=== PATIENT | female | born 1950 | race Caucasian/White ===

== ENCOUNTER → 2021-03-09 08:00 | Outpatient (BNVA) | payer MEDICARE, SELFPAY | PROVIDERS: Visit Provider Orthopaedic Surgery | DX: M70.50 Other bursitis of knee, unspecified knee (principal) | CPT/HCPCS: 99202 ==

== ENCOUNTER 2021-04-20 13:07 | Outpatient (REF) | payer MEDICARE, SELFPAY ==
--- NOTE | ~2021-04-20 | XR_ITS ---
EXAMINATION: XR KNEE STANDING, BILATERAL XR KNEE, LEFT CLINICAL INFORMATION: Knee pain. COMPARISON: None TECHNIQUE: AP standing view of the right and left knee. Lateral and sunrise views of the left knee. FINDINGS: No significant joint space narrowing or marginal osteophytes. No osseous erosion. No abnormal soft tissue calcification. No fracture or dislocation. No significant joint effusion. XR/XR knee LT 2V IMPRESSION: Unremarkable examination.
--- NOTE | ~2021-04-20 | XR_ITS ---
EXAMINATION: XR KNEE STANDING, BILATERAL XR KNEE, LEFT CLINICAL INFORMATION: Knee pain. COMPARISON: None TECHNIQUE: AP standing view of the right and left knee. Lateral and sunrise views of the left knee. FINDINGS: No significant joint space narrowing or marginal osteophytes. No osseous erosion. No abnormal soft tissue calcification. No fracture or dislocation. No significant joint effusion. XR/XR knee standing BI IMPRESSION: Unremarkable examination.
== END 2021-04-20 13:08 | disposition home or self-care (01) ==
LOC: HO.HOSX 13:07
PROVIDERS: PCP Internal Medicine; Visit Provider Orthopaedic Surgery
DX: M70.50 Other bursitis of knee, unspecified knee (principal)
CPT/HCPCS: 73560; 73565; 99212

== ENCOUNTER 2022-11-22 11:47 | Outpatient (REF) | payer MEDICARE, SELFPAY ==
--- NOTE | ~2022-11-22 | XR_ITS ---
EXAMINATION: XR SHOULDER, LEFT CLINICAL INFORMATION: Pain. COMPARISON: None TECHNIQUE: AP neutral, scapular Y and axillary views of the left shoulder are submitted. FINDINGS: Bony alignment and mineralization are normal. The glenohumeral joint is intact. There is a small peripheral osteophyte of the inferior articular margin of the glenoid. The acromioclavicular and coracoclavicular intervals are normal. No fracture or dislocation is seen. There is no abnormal soft tissue calcification or foreign body. No left pneumothorax is seen. XR/XR shoulder LT min 2V IMPRESSION: 1. No fracture or dislocation is seen. 2. 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
== END 2022-11-22 11:48 | disposition home or self-care (01) ==
LOC: HO.HOSX 11:47
PROVIDERS: Visit Provider Orthopaedic Surgery
DX: M25.512 Pain in left shoulder (principal)
CPT/HCPCS: 73030; 99212

== ENCOUNTER → 2023-01-17 09:40 | Outpatient (BNVA) | payer MEDICARE, SELFPAY | PROVIDERS: PCP Student in an Organized Health Care Education/Training Program; Visit Provider Orthopaedic Surgery | DX: M53.3 Sacrococcygeal disorders, not elsewhere classified (principal); M24.812 Other specific joint derangements of left shoulder, not elsewhere classified; G89.29 Other chronic pain | CPT/HCPCS: 99212 ==

== ENCOUNTER → 2023-02-04 08:42 | Outpatient (BNVA) | payer MEDICARE, SELFPAY | PROVIDERS: PCP Student in an Organized Health Care Education/Training Program; Visit Provider Orthopaedic Surgery | DX: S46.212A Strain of muscle, fascia and tendon of other parts of biceps, left arm, initial encounter (principal); W00.0XXA Fall on same level due to ice and snow, initial encounter; Y93.23 Activity, snow (alpine) (downhill) skiing, snowboarding, sledding, tobogganing and snow tubing; Y92.9 Unspecified place or not applicable; Y99.8 Other external cause status; M75.102 Unspecified rotator cuff tear or rupture of left shoulder, not specified as traumatic; M53.3 Sacrococcygeal disorders, not elsewhere classified; G89.29 Other chronic pain | CPT/HCPCS: 99212 ==

== ENCOUNTER → 2023-03-25 09:10 | Outpatient (BNVA) | payer MEDICARE, SELFPAY | PROVIDERS: PCP Student in an Organized Health Care Education/Training Program; Visit Provider Orthopaedic Surgery | DX: M75.102 Unspecified rotator cuff tear or rupture of left shoulder, not specified as traumatic (principal); S46.212D Strain of muscle, fascia and tendon of other parts of biceps, left arm, subsequent encounter | CPT/HCPCS: 20610; 99212; J1100 ==

== ENCOUNTER 2023-11-04 07:12 | Outpatient (REF) | payer MEDICARE, SELFPAY ==
--- NOTE | ~2023-11-04 | XR_ITS ---
EXAMINATION: XR KNEE AP STANDING, RIGHT KNEE [place] CLINICAL INFORMATION: Pain in unspecified knee. COMPARISON: 10/30/2023 right knee. 08/31/2021 AP standing bilateral knees. TECHNIQUE: AP bilateral standing view of the knees was obtained. [place] view of the right knee. FINDINGS: Mild medial joint space narrowing of the right knee with minimal medial marginal hypertrophic change. Tiny posterior patellar osteophytes. Single AP standing view of the left knee demonstrates minimal medial joint space narrowing. Scattered calcifications in the soft tissues of the bilateral knees are likely vascular. XR/XR knee standing BI IMPRESSION: 1. Mild degenerative changes right knee. 2. Minimal degenerative changes left knee.
--- NOTE | ~2023-11-04 | XR_ITS ---
EXAMINATION: XR KNEE AP STANDING, RIGHT KNEE [place] CLINICAL INFORMATION: Pain in unspecified knee. COMPARISON: 10/30/2023 right knee. 08/31/2021 AP standing bilateral knees. TECHNIQUE: AP bilateral standing view of the knees was obtained. [place] view of the right knee. FINDINGS: Mild medial joint space narrowing of the right knee with minimal medial marginal hypertrophic change. Tiny posterior patellar osteophytes. Single AP standing view of the left knee demonstrates minimal medial joint space narrowing. Scattered calcifications in the soft tissues of the bilateral knees are likely vascular. XR/XR knee RT 1V IMPRESSION: 1. Mild degenerative changes right knee. 2. Minimal degenerative changes left knee.
== END 2023-11-04 07:13 | disposition home or self-care (01) ==
LOC: HO.HOSX 07:12
PROVIDERS: Visit Provider Orthopaedic Surgery
DX: M25.561 Pain in right knee (principal); M23.91 Unspecified internal derangement of right knee
CPT/HCPCS: 73560; 73565; 99212

== ENCOUNTER 2023-11-04 12:21 | Outpatient (AMB) | payer MEDICARE, SELFPAY ==
[2023-11-04 12:41] VITALS: BMI 18.6
--- NOTE | 2023-11-04 12:41 | MHC.OFFVIS ---
Intake Vital Signs 11/04/23 12:41 Height 5 ft 1.5 in Weight 100 lb BMI 18.6 Intake Visit Reasons: New Prob -right knee pain/injury Intake Note: Hawa is a 72 year old female who presents today for a new problem visit with complaints of right knee pain. Patient reports that she was skiing on saturday afternoon and she hit ice. She is unsure exactly how she fell, she twisted the knee. Currently the knee is feeling better but she explains that something feels wrong Allergies ENVIRONMENTAL Allergy (Intermediate, Uncoded 01/17/23 09:43) HAYFEVER HPI New Prob -right knee pain/injury HPI Details Hawa is a 72 year old woman who presents for a right knee injury while skiing, DOI: 10/30/23. She says she was skiing and slipped on ice, twisting her knee and causing pain. She says her pain has improved somewhat, but that something feels wrong with her knee. [facility] Surgical History History of shoulder surgery Social History Alcohol intake: never Patient Tobacco Use Status: Never used Tobacco Current occupational status: retired Current occupation: right handed Review of Systems Const All systems reviewed & are unremarkable except as noted in HPI and below Physical Exam Vital Signs: BMI result Body Mass Index 18.6 Const General: no acute distress, alert and awake Orientation/consciousness: patient oriented x3 HEENT Head: Yes normocephalic and Yes atraumatic Eyes EOM: EOMs intact bilaterally Resp Effort & Inspection: normal respiratory effort and able to speak in complete sentences Cardio Jugular venous distension: no JVD Skin General skin exam: turgor normal Rashes: no rashes Neuro General: patient oriented x3 Extrem Other: No effusion Pain with terminal flexion + Steinmen's Psych Appearance: grossly normal Affect: normal affect Attitude: cooperative Results Reviewed Results Reviewed: I personally reviewed relevant radiographs. Xray unremarkable Assessment & Plan Assessment & Plan (1) Locking of right knee: Code(s): M23.91 - Unspecified internal derangement of right knee Plan: Internal derangment of right knee with pain and locking. MRI ordered. Plan Prepared for Dao Hernandez MD by Guille Hu, medical anthropology director, on 11/04/23 at 12:47 PM, EST. Orders: Orders MR knee RT wo con Today M23.91 - Unspecified internal derangement of right knee XR knee standing BI Today M25.569 - Pain in unspecified knee Coding Level of Care Code Est Pt Level 4 (25276) Diagnoses Locking of right knee M23.91
== END 2023-11-04 13:40 | disposition home or self-care (01) ==
PROVIDERS: PCP Student in an Organized Health Care Education/Training Program; Visit Provider Orthopaedic Surgery
DX: M23.91 Unspecified internal derangement of right knee (principal)
CPT/HCPCS: 99213

== ENCOUNTER 2023-11-06 12:40 | Outpatient (REF) | payer MEDICARE, SELFPAY ==
--- NOTE | ~2023-11-06 | MR_ITS ---
EXAMINATION: MR KNEE WITHOUT CONTRAST, RIGHT CLINICAL INFORMATION: Fall 1 week ago. COMPARISON: None available. TECHNIQUE: MRI of the knee without contrast was performed using routine sequences on a high-field scanner. FINDINGS: MENISCI: Medial Meniscus: Intact Lateral Meniscus: Irregular tearing of the posterior root/central posterior horn. This involves a segment approximately 1.4 cm transverse. LIGAMENTS: Cruciate: Increased T2 signal in its/proximal ACL, raising concern for sprain/partial tear. Mild T2 signal in the PCL, could reflect mucoid degeneration or sprain. Collateral: Intact EXTENSOR MECHANISM: Intact ARTICULAR CARTILAGE/BONE: Patellofemoral Compartment: Mild medial trochlea cartilage thinning. In the Medial Compartment: Mild cartilage thinning in the posterior tibia, anterior weightbearing femur. Lateral Compartment: Prominent edema in the posterior aspect lateral tibial plateau, from bone contusion, with a subchondral curvilinear undisplaced fracture/trabecular microfracture. Cartilage thinning in the posterior tibia. JOINT FLUID AND BURSAE: Small effusion. Small Lezama's cyst. Subcutaneous edema. MR/MR knee RT wo con IMPRESSION: 1. Tear of the lateral meniscal posterior root and central posterior horn. 2. ACL findings concerning for sprain/partial tear. 3. Mild patellofemoral and medial compartment arthritis. 4. Severe edema in the posterior aspect lateral tibial plateau from bone contusion and a subchondral curvilinear undisplaced fracture/trabecular microfracture. Mild lateral compartment arthritis. 4. Small effusion. Small Lezama's cyst.
== END 2023-11-06 12:41 | disposition home or self-care (01) ==
LOC: HO.MRI 12:40
PROVIDERS: PCP Student in an Organized Health Care Education/Training Program; Visit Provider Orthopaedic Surgery
DX: M23.91 Unspecified internal derangement of right knee (principal); M25.461 Effusion, right knee
CPT/HCPCS: 73721

== ENCOUNTER 2023-11-06 14:21 | Outpatient (AMB) | payer MEDICARE, SELFPAY ==
--- OUTSIDE RECORDS SUMMARY | 2023-11-06 14:23 | XMS_ITS | Continuity of Care Document ---
Author Name Unknown Organization [facility] Address [address] [place] [address]- Care Team Providers Care Technology Support Analyst Name Role Phone Sarah HARDING, Brea Mccrary Primary Care Physic rakesh [place] [facility] [place] 02/11/21 [facility] [address] [address]- Attending Physician: Carol Ann Mix Admitting Physician: AdmtrCarol Ann Referring Physician: Admtr, Ar8 Allergies, Adverse Reactions, Alerts Substance Reaction Severity Status NKA Active Medications 1 tug chair 1 tug chair, See Instructions, # 1 units, Refills 0, Tot. Refills 0, Maintenance, tug chair, 02/11/19 10:22:58 EDT, Compound Start Date: 02/11/19 Status: Ordered Annamarie = 180 mg, By Mouth, Daily, 0 Refills, Maintenance, 01/23/19 15:20:25 EDT Start Date: 01/23/19 Status: Ordered bed rails bed rails, See Instructions, # 1 units, Refills 0, Tot. Refills 0, Maintenance, bed rails, 02/11/1910:21:26 EDT, Compound Start Date: 02/11/19 Status: Ordered calcium (as carbonate) 500 mg oral tablet, chewable 1 tablet = 500 mg, Chew, Daily, # 12 tablet, 0 Refills, Maintenance, 11/14/19 16:46:00 EST, Chew Tablet Start Date: 11/14/19 Status: Ordered Colace sodium 100 mg oral capsule 100 mg, 1, capsule, By Mouth, 2 times a day, PRN, Maintenance, for constipation, 11/15/19 14:29:00 EST Start Date: 11/15/19 Status: Ordered Estrace Vaginal Cream 0.1 mg/g Vaginally, Daily at bedtime, 2x a week on Saturday and Saturday, 0 Refills, Maintenance, 01/28/19 10:34:44 EDT Start Date: 01/28/19 Status: Ordered Estradiol = 0.25 mg, By Mouth, Daily at bedtime, 0 Refills, Maintenance, 03/30/17 16:14:08 EDT Start Date: 03/30/17 Status: Ordered Fish Oil 1000 mg oral capsule 1 capsule = 1,000 mg, By Mouth, Daily, 0 Refills, Maintenance, 01/23/19 15:43:06 EDT Start Date: 01/23/19 Status: Ordered gabapentin 100 mg oral capsule 200 mg, 2, capsule, By Mouth, Daily at bedtime, Refills 0, Maintenance, 11/14/19 16:46:00 EST Start Date: 11/14/19 Status: Ordered melatonin 10 mg oral capsule 1 capsule = 10 mg, By Mouth, Daily at bedtime, 0 Refills, Maintenance, 12/19/17 10:10:45 Start Date: 12/19/17 Status: Ordered Multivitamin Daily, 0 Refills, Maintenance, 12/19/17 10:10:52 Start Date: 12/19/17 Status: Ordered ProAir HFA 90 mcg/inh inhalation aerosol with adapter 2, puffs, Inhalation, Every 6 hours, PRN, Maintenance, 11/15/19 14:28:00 EST, Aerosol Start Date: 11/15/19 Status: Ordered Iridologist Iridologist, See Instructions, # 1 units, Refills 0, Tot. Refills 0, Maintenance, Iridologist, 02/11/19 10:20:33 EDT, Compound Start Date: 02/11/19 Status: Ordered Senna Lax 8.6 mg oral tablet 2 tablet = 17.2 mg, By Mouth, Daily at bedtime, PRN for constipation, Maintenance, 11/15/19 14:29:00 EST, Tablet Start Date: 11/15/19 Status: Ordered Vitamin D3 1000 intl units oral tablet 1 tablet = 1,000 International_Units, By Mouth, Daily, Maintenance, 11/15/19 14:29:00 EST, Tablet Start Date: 11/15/19 Status: Ordered Walker See Instructions, # 1 each, Refills 0, Tot. Refills 0, Maintenance, walker fit to patient, use as needed. patient is post op, 05/15/19 11:56:01 EDT, Compound Start Date: 05/15/19 Status: Ordered Problem List Condition Effective Dates Status Health Status Inform ant Allergic rhinitis(Confirmed) Active Anxiety(Confirmed) Active Low back pain(Confirmed) Active Persistent insomnia(Confirmed) Active Social History Social History Type Response Smoking Status Never (less than 100 in lifetime) entered on: 06/04/19 Sex Female
--- OUTSIDE RECORDS SUMMARY | 2023-11-06 14:23 | XMS_ITS | Continuity of Care Document ---
Author Name Unknown Organization [facility] Address [address] [place] [address] [address], [address] [place] [address]- Care Team Providers Care Cognos Developer Name Role Phone Sarah HARDING, Brea Mccrary Primary Care Physic rakesh Encounter [facility] [place] Date(s): 07/08/20 - 08/07/20 [facility] [address] [place] [address] Drive, [address] [place] [address]- [facility] Allergies, Adverse Reactions, Alerts Substance Reaction Severity [...] EST, Aerosol Start Date: 11/15/19 Status: Ordered Technologies Division Chair Technologies Division Chair, See Instructions, # 1 units, Refills 0, Tot. Refills 0, Maintenance, Technologies Division Chair, 02/11/19 10:20:33 EDT, Compound Start Date: 02/11/19 [...]
--- OUTSIDE RECORDS SUMMARY | 2023-11-06 14:23 | XMS_ITS | Continuity of Care Document ---
Author Name Unknown Organization [facility] Address [address] [place] [address]- Care Team Providers Care Ranch Hand Name Role Phone Sarah HARDING, Brea Mccrary Primary Care Physic rakesh En[place] [facility] [place] Date(s): 11/14/19 - 11/16/[address] [address]- [facility] Discharge Disposition: A-D/C Home Attending Physician: Galindo HARDING, Claude Christianson Admitting Physician: Claude Medley MD Referring Physician: Not on Staff, Referring MD Allergies, Adverse Reactions, Alerts Substance Reaction Severity [...] EST, Aerosol Start Date: 11/15/19 Status: Ordered Casino Floor Person Casino Floor Person, See Instructions, # 1 units, Refills 0, Tot. Refills 0, Maintenance, Casino Floor Person, 02/11/19 10:20:33 EDT, Compound Start Date: 02/11/19 [...] Low back pain(Confirmed) Active Persistent insomnia(Confirmed) Active Results Radiology Reports * Exam Date Time Procedure Performing Provider Status 11/14/19 1:26 PM Chest 2 Views Frontal and Lat Yudelka Ramírez; Auth (Verified) Notes: (Chest 2 Views Frontal and Lat) Reason For Exam: cough;Other: RESULT: Chest 2 Views Frontal and Lat Chest 2 Views Frontal and Lat Refer to EMR; Reason: Other:; cough; Clinical Question(s): Pneumonia; Hx of Present Illness: t approx 2 am patient reports she got up to go to the bathroom, felt nauseated, woke up on the floor, was found by spouse. Was confused and not following commands. Flu like symptoms since Saturday, started Tamiflu Saturday; Other Objective Findings: Patient awake, alert, approp, oriented x 3, speech clear, COMPARISON: 10/17/2019 FINDINGS: LINES AND TUBES: None. LUNGS AND PLEURA: Right upper and right middle lobe airspace opacities are slightly decreased in size compared with 10/17/2019. New airspace opacity is seen within the right lower lobe. Left lung is clear. No pleural effusion. No pneumothorax. HEART, MEDIASTINUM AND RICARDO: Heart is normal in size. Normal mediastinal and hilar contour. BONES AND SOFT TISSUES: No acute abnormality. IMPRESSION: Right upper lobe and right middle lobe airspace opacities are slightly decreased from prior study. There is however new airspace opacity in the right lower lobe. This may represent acute pneumonia oratelectasis. As recommended previously, follow-up to complete radiographic resolution of these findings is recommended. A [place] message has been communicated via the [facility] system on 11/14/2019 2:06 PM, Message ID [id number]. WSN: [id number] Dictated By: Janessa Gallegos MD Dictated Date/Time: 11/14/19 2:06 pm Reviewed By: Janessa Gallegos MD Signed By: Janessa Gallegos MD Signed Date/Time: 11/14/19 2:06 pm Transcribed By: JUNO Transcribed Date/Time: 11/14/19 2:02 pm Vital Signs Most recent to oldest [Reference Range]: 1 2 3 Height 158 cm (11/16/19 9:03 AM) 158 cm (11/16/19 5:56 AM) 158 cm (11/16/19 12:13 AM) Weight 46.1 kg (11/16/19 5:56 AM) 46.2 kg (11/15/19 2:23 PM) 47.8 kg (11/15/19 1:08 PM) Oxygen Saturation [94-100 %] 98 % (11/16/19 5:56 AM) 99 % (11/16/19 12:13 AM) 100 % (11/15/19 4:45 PM) Pulse Rate [55-90 bpm] 65 bpm (11/16/19 5:56 AM) 68 bpm (11/16/19 12:13 AM) 73 bpm (11/15/19 4:45 PM) Body Mass Index [18.5-24.99] 18.47 *L* (11/16/19 5:56 AM) 18.51 (11/15/19 2:23 PM) Blood Pressure [90-138/55-84 mm Hg] 140/70mm Hg *H* (11/16/19 9:03 AM) 145/72mm Hg *H* (11/16/19 5:56 AM) 146/68mm Hg *H* (11/16/19 12:13 AM) Respiratory Rate [16-30 br/min] 16 br/min (11/16/19 5:56 AM) 16 br/min (11/16/19 12:13 AM) 18 br/min (11/15/19 9:48 PM) Temperature [96.8-100.4 DegF] 98.0 DegF (11/16/19 5:56 AM) 98.3 DegF (11/16/19 12:13 AM) 98.1 DegF (11/15/19 4:45 PM) Mode of Delivery (Oxygen) Room air (11/16/19 5:56 AM) Room air (11/16/19 12:13 AM) Room air (11/15/19 4:45 PM) Blood pressure sites Arm, left (11/16/19 9:03 AM) Arm, left (11/16/19 5:56 AM) Arm, left (11/16/19 12:13 AM) Temperature Route Oral (11/16/19 5:56 AM) Oral (11/16/19 12:13 AM) Oral (11/15/19 4:45 PM) Dry Weight 48 kg (11/15/19 2:23 PM) 47.8 kg (11/15/19 1:08 PM) 47.8 kg (11/15/19 12:49 PM) Weight Obtained Via Bed scale (11/16/19 5:56 AM) Bed scale (11/15/19 2:23 PM) Standing scale (11/14/19 11:44 AM) Dry Weight Obtained Via Patient/family s tated (11/15/19 2:23 PM) Standing scale (11/14/19 11:44 AM) Sensory deficits None (11/15/19 2:23 PM) Mobility assistance Independent (11/15/19 2:23 PM) Social History Social History Type Response Smoking Status Never (less than 100 in lifetime) entered on: 06/04/19 Sex Female
--- OUTSIDE RECORDS SUMMARY | 2023-11-06 14:23 | XMS_ITS | Continuity of Care Document ---
Author Name Unknown Organization [facility] Address [address] [place], [place] [address]soledad denise, [address] [place] [address]- Care Team Providers Care Mortgage Processing Clerk Name Role Phone Brea Smith MD Primary Care Physic rakesh Encounter [facility] [place] Date(s): 10/30/22 - 11/06/[address], [address] [place], [place] [address] Attending Physician: Brea Smith MD Allergies, Adverse Reactions, Alerts No Known Allergies Medications 1 tug chair 1 tug chair, [...] EST, Aerosol Start Date: 11/15/19 Status: Ordered Campus Recruiter Campus Recruiter, See Instructions, # 1 units, Refills 0, Tot. Refills 0, Maintenance, Campus Recruiter, 02/11/19 10:20:33 EDT, Compound Start Date: 02/11/19 [...] Date: 05/15/19 Status: Ordered Problem List Condition Confirmation Course Effective Dates Status Health St atus Informant Allergic rhinitis Confirmed Active Anxiety Confirmed Active Low back pain Confirmed Active Persistent insomnia Confirmed Active Underweight Confirmed Active Vital Signs Most recent to oldest [Reference Range]: 1 Height 160 cm (10/30/22 8:50 AM) Weight 46.0 kg (10/30/22 8:50 AM) Body Mass Index [18.5-24.99 kg/m2] 17.97 kg/m2 *L* (10/30/22 8:50 AM) Social History Social History Type Response Smoking Status Never (less than 100 in lifetime) entered on: 06/04/19 Sex Female Patient Care team information Care Team Personnel Name: Zunilda Ahumada RN Position: [facility] RN Member Role: Primary Care Nurse Name: Sarah HARDING, Brea Mccrary Position: [facility] Outreach Member Role: PCP Address: Address: [address] [place] [address], [place], [place] [address] Name: Daisy Brooks RN Position: [facility] Hospital Ironworker Apprentice Member Role: Primary Care Nurse Care Team Related Persons Name: MIC RUEDA Address: [address] [place] [address] Name: BERTHA BUSTOS Address: [address] [place] [address]
--- OUTSIDE RECORDS SUMMARY | 2023-11-06 14:23 | XMS_ITS | Continuity of Care Document ---
Author Name Unknown Organization [facility] Address [address] [place], [place] [address] denise, [address] [place] [address]- Care Team Providers Care Bulk Coolers Installer Name Role Phone Sarah HARDING, Brea Mccrary Primary Care Physic rakesh [place] [facility] [place]s): 10/30/22 - 11/29/22 [facility] [address] [place] [address] Drive, [address] [place], [place] [address] Attending Physician: Admtr, Ar8 Admitting Physician: Admtr, Ar8 Referring Physician: Admtr, Ar8 Allergies, Adverse Reactions, Alerts No Known Allergies [...] EST, Aerosol Start Date: 11/15/19 Status: Ordered Video Game Animator Video Game Animator, See Instructions, # 1 units, Refills 0, Tot. Refills 0, Maintenance, Video Game Animator, 02/11/19 10:20:33 EDT, Compound Start Date: 02/11/19 [...] Persistent insomnia Confirmed Active Underweight Confirmed Active Social History Social History Type Response Smoking Status Never (less than 100 in lifetime) entered on: 06/04/19 Sex Female Patient Care team information Care Team Personnel Name: Zunilda Ahumada RN Position: [facility] RN Member Role: Primary Care Nurse Name: Brea Smith MD Position: [facility] Outreach Member Role: PCP Address: Address: [address] [place] [address], [place], [place] [address] Name: Daisy Brooks RN Position: [facility] Hospital Gis Analyst Member Role: Primary Care Nurse Care Team Related Persons Name: MIC RUEDA Address: [address] [place] [address] Name: BERTHA BUSTOS Address: [address] [place] [address]
--- OUTSIDE RECORDS SUMMARY | 2023-11-06 14:23 | XMS_ITS | Continuity of Care Document ---
Author Name Unknown Organization [facility] Address [address] [place] [address]- Care Team Providers Care Maintenance Advisor Name Role Phone Sarah HARDING, Brea Mccrary Primary Care Physic rakesh Encounter [facility] [place] Date(s): 05/24/21 - 06/23/21 [facility] [address] [place] [address] Allergies, Adverse Reactions, Alerts Substance Reaction Severity [...] EST, Aerosol Start Date: 11/15/19 Status: Ordered Validation Engineer Validation Engineer, See Instructions, # 1 units, Refills 0, Tot. Refills 0, Maintenance, Validation Engineer, 02/11/19 10:20:33 EDT, Compound Start Date: 02/11/19 [...]
--- OUTSIDE RECORDS SUMMARY | 2023-11-06 14:23 | XMS_ITS | Patient Health Record ---
Author Name Unknown [facility] Address [address] [place] [address] Care Team Providers Care Track Superintendent Name Role Phone Steven Christine MD, Brea Strange Primary Care Prov ider Unavailable Aayush Canela Unavailable [phone] ALLERGIES Allergen (clinical drug ingredient) Drug/Non Drug Allergy documented on EMR Reaction Allergy Type Onset Date Status codeine Codeine Sulfate nausea Drug Allergy A ctive REASON FOR REFERRAL No Information MEDICATIONS Medication SIG (Take, Route, Frequency, Duration) Notes Start Date End Date Status Antibiotic Active Gabapentin 100 MG 2 Orally Once a day Active Melatonin 10 MG as directed Orally Active Allergy injections Not-Takin g Estradiol 0.025 MG/24HR 1 patch to skin Transdermal Two times a Week for 30 day(s) Not-Taking SOCIAL HISTORY Tobacco Use: Social History Observation Description Date Details (start date - stop date) Never Smoker NA - NA Sex Assigned At : Social History Observation Description Sex Assigned At Unknown Tobacco Use/Smoking Question Answer Notes Are you a: nonsmoker Additional Findings: Tobacco Non-User Current no n-smoker Alcohol Screen Question Answer Notes Did you have a drink containing alcohol in the p ast year? No Points 0 Interpretation Negative Tobacco use other than smoking: Question Answer Notes Are you an other tobacco user? No PROBLEMS Problem Type ICD Code Onset Dates Problem Status W/U Status Risk SNOMED Code Notes Problem Hallux valgus (acquired), left foot (M20.12) Active confirmed Acquired hallux valgus (79548038) Problem Primary osteoarthrit is, right ankle and foot (M19.071) Active confirmed Localized, prim raghu osteoarthritis of the ankle and/or foot (075212143) Problem Hallux valgus (acquired), right foot (M20.11) Active confirmed Acquired hallux valgus (93462230) Problem Other hammer toe(s) (acquired), right foot (M20.41) Active confirmed Acquired hammer toe of right foot (0826516976215145) Problem Other hammer toe(s) (acquired), left foot (M20.42) Active confirmed Acquired hammer toe of left foot ([id number]) Encounters Encounter Location Date [facility] [address] [place] [id number] 09/27/2023 Aayush Canela [facility] [address] 09/27/2023 Aayush Canela PLAN OF TREATMENT Pending Test Test Name Order Date X ray : Foot, left 3V 12/11/2019 X ray : Foot, right 3V 12/11/2019 Insurance Providers Payer Name Payer Address Payer Phone Subscriber Number Group Number Insured Name Patient Relationship to Insured Coverage Start Date Coverage End Date Medicare National Govt [employer] [address] [place] [address] [id number] Hawa Lim Self - patient is the insured [employer] Blue [employer] [address] [place] [address] [id number] Hawa Lim Self - patient is the insured MEDICAL (GENERAL) HISTORY Medical History History ICD Code Arthritis Back,Hip,and Knee pain Broken bones Headaches/Migraines Measles Mumps Chicken pox Right foot fracture 2007? Surgical History Surgery Date(Month/Year) right shoulder 09/2015 fusion lower spine 01/2019 Hospitalization History Reason Date(Month/Year) [facility]- Flu 11/2019
--- NOTE | 2023-11-06 14:24 | MHC.OFFVIS ---
Intake Intake Visit Reasons: telehealth Intake Note: This is a 72 year old female, for a telehealth visit. Allergies ENVIRONMENTAL Allergy (Intermediate, Uncoded 11/06/23 14:25) HAYFEVER Medication List - Last Reconciled 11/06/23 by Paradise Vivar, RN conjugated estrogens vaginal cyclosporine 0.05% 1 drp ophthalmic (eye) BID gabapentin mg PO ibuprofen 800 mg PO TID PRN prednisolone acetate 1% drps ophthalmic (eye) prednisone 40 mg (2 x 20 mg) PO DAILY PRN 10 days HPI telehealth HPI Details Right knee still painful MRI reviewed PFS Surgical History History of shoulder surgery Social History Alcohol intake: never Patient Tobacco Use Status: Never used Tobacco Current occupational status: retired Current occupation: right handed Results Reviewed Results Reviewed: I personally reviewed the MR images. 1. Tear of the lateral meniscal posterior root and central posterior horn. 2. ACL findings concerning for sprain/partial tear. 3. Mild patellofemoral and medial compartment arthritis. 4. Severe edema in the posterior aspect lateral tibial plateau from bone contusion and a subchondral curvilinear undisplaced fracture/trabecular microfracture. Mild lateral compartment arthritis. 4. Small effusion. Small Lezama's cyst. Assessment & Plan Assessment & Plan (1) Lateral meniscus tear: Code(s): S83.289A - Other tear of lateral meniscus, current injury, unspecified knee, initial encounter Plan: Lateral meniscus tear. I reviwed the details with her and recdommend re-eval in 2-3 weeks. We discussed surgery as well as the benefits and alternatives. Telehealth Telehealth Location of provider rendering services: practice address Location of patient: address on file Patient Identification confirmed using: Name, : Yes Telehealth method: voice only Patient verbally consented to treatment: Yes Patient verbally consented to billing insurance company: Yes Patient informed of any privacy concerns related to visit: Yes Coding Level of Care Code Tele Est Pt Level 4 (70825) Diagnoses Lateral meniscus tear S83.289A
== END 2023-11-06 14:59 | disposition home or self-care (01) ==
LOC: HO.HOS 14:21
PROVIDERS: PCP Student in an Organized Health Care Education/Training Program; Visit Provider Orthopaedic Surgery
DX: S83.289A Other tear of lateral meniscus, current injury, unspecified knee, initial encounter (principal)
CPT/HCPCS: 99443

== ENCOUNTER 2023-11-18 13:03 | Outpatient (AMB) | payer MEDICARE, SELFPAY ==
--- NOTE | 2023-11-18 13:05 | MHC.OFFVIS ---
Intake Vital Signs 11/18/23 13:06 Height 5 ft 1.5 in Weight 100 lb BMI 18.6 Intake Visit Reasons: Ov- Left shoulder pain Intake Note: Hawa is a 72 year old right hand dominant female who presents today for a follow up of her left shoulder. She presents today to discuss treatment options including surgery of the left shoulder Allergies ENVIRONMENTAL Allergy (Intermediate, Uncoded 11/06/23 14:25) HAYFEVER HPI Ov- Left shoulder pain HPI Details Hawa is a 72 year old woman who returns to discuss her right knee. She injured herself~ 2 weeks ago and is here for MRI review. She is unable to return to her previous level of activity. She describes instability and pain, mostly posterior knee. [facility] Surgical History History of shoulder surgery Social History Alcohol intake: never Patient Tobacco Use Status: Never used Tobacco Current occupational status: retired Current occupation: right handed Review of Systems Const All systems reviewed & are unremarkable except as noted in HPI and below Physical Exam Vital Signs: BMI result Body Mass Index 18.6 Const General: no acute distress, alert and awake Orientation/consciousness: patient oriented x3 HEENT Head: Yes normocephalic and Yes atraumatic Eyes EOM: EOMs intact bilaterally Resp Effort & Inspection: normal respiratory effort and able to speak in complete sentences Cardio Jugular venous distension: no JVD Skin General skin exam: turgor normal Rashes: no rashes Neuro General: patient oriented x3 Extrem Other: Right knee with race effusion TTP lateral comaprtment with + lateral Steinmen's Psych Appearance: grossly normal Affect: normal affect Attitude: cooperative Results Reviewed Results Reviewed: I personally reviewed the MR images. 1. Tear of the lateral meniscal posterior root and central posterior horn. 2. ACL findings concerning for sprain/partial tear. 3. Mild patellofemoral and medial compartment arthritis. 4. Severe edema in the posterior aspect lateral tibial plateau from bone contusion and a subchondral curvilinear undisplaced fracture/trabecular microfracture. Mild lateral compartment arthritis. 4. Small effusion. Small Lezama's cyst. Assessment & Plan Assessment & Plan (1) Lateral meniscus tear: Code(s): S83.289A - Other tear of lateral meniscus, current injury, unspecified knee, initial encounter Plan: This is a very active and exceptionally healthy 72 yo with a lateral meniscal root and horn tear. There is a lateral tibial plateau contusion. I recommend knee for the lateral meniscus tear. I reviewed her MRI anbd the options inclduing menical repair vs partial meniscectomy. She understands that the decision will be made intra-operatively. I discussed the risks benefits and alternatives including but not limited to the risk of pain, infection, stiffness, need for further surgery as well as potential medical complications. She expressed understanding and we will proceed forward accordingly. Plan Prepared for Dao Hernandez MD by Guille Hu, family practice medical doctor, on 11/18/23 at 1:19 PM, EST. Coding Level of Care Code Est Pt Level 4 (60549) Diagnoses Lateral meniscus tear S83.289A
[2023-11-18 13:06] VITALS: BMI 18.6
== END 2023-11-18 14:12 | disposition home or self-care (01) ==
PROVIDERS: PCP Student in an Organized Health Care Education/Training Program; Visit Provider Orthopaedic Surgery
DX: S83.281A Other tear of lateral meniscus, current injury, right knee, initial encounter (principal)
CPT/HCPCS: 99214

== ENCOUNTER → 2023-11-18 13:03 | Outpatient (BNVA) | payer MEDICARE, SELFPAY | PROVIDERS: PCP Student in an Organized Health Care Education/Training Program; Visit Provider Orthopaedic Surgery | DX: S83.281D Other tear of lateral meniscus, current injury, right knee, subsequent encounter (principal) | CPT/HCPCS: 99212 ==

== ENCOUNTER 2023-12-03 10:27 | Day surgery (SDC) | payer MEDICARE, SELFPAY ==
--- NOTE | 2023-12-02 11:02 | HO.ANESPROP2 ---
Documented by User: Nakia Wadsworth NP 12/02/23 11:02 HPI - Anesthesia Eval Consult details Narrative: 72yo F for Right Knee Arthroscopy,possible meniscus,possible repair PMFSH Active Problems Active Problems: All Active Problems (Updated 11/06/23 @ 14:36 by Dao Hernandez MD) Lateral meniscus tear (Acute) Locking of right knee (Acute) Poison israel dermatitis (Acute) Traumatic partial tear of left biceps tendon (Acute) Left rotator cuff tear (Acute) Chronic SI joint pain (Acute) Left shoulder pain (Acute) Pes anserine bursitis (Acute) Surgical History Surgical History History of shoulder surgery Social History Social History Alcohol intake: never Patient Tobacco Use Status: Never used Tobacco Use of substances other than those prescribed or required for medical reasons: No Are you DNR?: No Advance Directives: No Advance Directives Information Provided: Yes Current occupational status: retired Current occupation: right handed Meds Allergies Allergy/AdvReac Type Severity Reaction Status Date / Time ENVIRONMENTAL Allergy Intermediate HAYFEVER Uncoded 11/06/23 14:25 Home Medications Medication Instructions Recorded Confirmed Last Taken Type conjugated estrogens 0.625 mg/gram vaginal 03/09/21 11/06/23 Unknown History vaginal cream cyclosporine 0.05 % eye drops in a 1 drp ophthalmic (eye) BID 03/09/21 11/06/23 Unknown History dropperette gabapentin 100 mg capsule 200 mg PO BEDTIME 03/09/21 11/06/23 Unknown History Assessment and Plan Assessment Anesthesia Assessment: Chart Reviewed Documented by User: Home Morales MD 12/03/23 13:16 PMFSH Family History Family history of problems with anesthesia: No Surgical History Surgical History History of shoulder surgery History of Problems with Anesthesia: No Social History Social History Alcohol intake: never Patient Tobacco Use Status: Never used Tobacco Use of substances other than those prescribed or required for medical reasons: No Are you DNR?: No Advance Directives: No Advance Directives Information Provided: Yes Current occupational status: retired Current occupation: right handed Meds Allergies Allergy/AdvReac Type Severity Reaction Status Date / Time ENVIRONMENTAL Allergy Intermediate HAYFEVER Uncoded 11/06/23 14:25 Home Medications Medication Instructions Recorded Confirmed Last Taken Type conjugated estrogens 0.625 mg/gram vaginal 03/09/21 11/06/23 Unknown History vaginal cream cyclosporine 0.05 % eye drops in a 1 drp ophthalmic (eye) BID 03/09/21 11/06/23 Unknown History dropperette gabapentin 100 mg capsule 200 mg PO BEDTIME 03/09/21 11/06/23 Unknown History Exam Airway Mallampati Class: II TM Dist: >3cm Neck ROM: Full Loose/Missing/Broken Teeth: No Assessment and Plan Assessment Anesthesia Assessment: Anesthesia Plan Discussed Final Anesthetic Review Family History of Problems with Anesthesia: No History of Problems with Anesthesia: No NPO: Yes ASA Class: II Final Preanesthetic Review: No Changes in Pt Med Stat, Meds/Allgs Chart Reviewed, Consent Obtained/Reviewed and Anes Risks/Benef Reviewed Patient Risk: Low Procedure Risk: Low Anesthetic Plan Anesthetic Plan: GA Disposition: Standard PACU
[2023-12-03] VITALS (9 sets, daily range): BP systolic 144–170; BP diastolic 74–91; PULSE 60–79; RESP 12–18; TEMP 36.4–36.7; O2SAT 96–99; BMI 17.1
--- NOTE | 2023-12-03 10:42 | MHC.SHP ---
Pre-Procedural Eval Section A - 24 Hr Update-Section A only Date of Service: 12/03/23 The patient is an INPATIENT: No Changes since office visit: No Cold of Flu in the past 2 weeks, No New Medical Problems, No Changes in Medication and No Patient answered all questions The patient has been examined within 24 hours of the surgical procedure. The History & Physical has been completed within 30 days and I have reviewed it.: Yes Section B - Complete if H&P > 30 days Chief Complaint: Other tear of lateral meniscus, current injury, un Allergies: Allergies Allergy/AdvReac Type Severity Reaction Status Date / Time ENVIRONMENTAL Allergy Intermediate HAYFEVER Uncoded 11/06/23 14:25 Plan I have reviewed the history and physical and performed a pertinent physical examination on my patient. No changes have occurred unless specified. Time Spent With Patient Time: Total time managing care of this patient today ____ minutes.
[2023-12-03] MEDS: Lactated Ringers 1,000 ML 100 ML IVCONT (11:15)
--- NOTE | 2023-12-03 13:56 | P.BOP_ITS ---
Brief Operative Note Date of Service: 12/03/23 Pre-op diagnosis: lateral meniscus tear Post-op diagnosis: other (1) Lateral meniscus tear ) Procedure: Partial lateral meniscectomy, right Implants: none Surgeon: Dao Hernandez MD Anesthesia: GETA and local Was an Corporate Banking Officer used for this Procedure?: No Estimated blood loss (mL): 10 IV fluids (mL): 650 Pathology: none sent Condition: stable Disposition: PACU
[2023-12-03] MEDS: HYDROmorphone HCl 0.5 MG/0.5 ML SYRINGE 0.25 MG IVPUSH ×2 (14:10→14:15)
[2023-12-03] MEDS: oxyCODONE HCl Immed Release 5 MG TABLET PO (14:10)
[2023-12-03] MEDS: Acetaminophen 1,000 MG/100 ML PIGGYBACK 400 MG IV (14:21)
--- NOTE | 2023-12-04 08:30 | P.OP_ITS ---
Operative Note Operative Note Date of Service: 12/03/23 Narrative: Date of Service: 12/03/23 Pre-op diagnosis: lateral meniscus tear Post-op diagnosis: other (1) Lateral meniscus tear ) Procedure: Partial lateral meniscectomy, right Implants: none Surgeon: Dao Hernandez MD Anesthesia: GETA and local Was an Customer Support Coordinator used for this Procedure?: No Estimated blood loss (mL): 10 IV fluids (mL): 650 Pathology: none sent Condition: stable Disposition: PACU Procedure in detail: Patient was brought to the operating room placed supine on the arthroscopic table and prepped and draped in standard sterile fashion. A time-out was called to identify proper site proper procedure proper surgeon and IV antibiotics per weight were administered. I began by exsanguinating the limb and insufflating tourniquet to 300 mm Hg. Then made a standard anterolateral stab incision. The knee was insufflated with water and 30 degree arthroscope was placed. There was a normal PFH with a clean suprapatellar pouch and gutters. I descended into the medial compartment where I made my medial portal under direct visualization. The medial compartment was pristine. The ACL has a small partial small tear if the PL bundle. There was synovitis but the ACL was otherwise intact. There was a meniscal flap dislodged into the notch. This was not connected to the lateral meniscus. THis was removed with a shaver. In a figure four position the lateral compartment was thoroughly examined. There was a tear of the posterior horn and root of the lateral meniscus. Approximately 25% of the root was intact and the meniscus was stable to probing. 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 I used a combination of biter shaver and cautery to remove unstable portions of the meniscus. The tibial chondromalacia was debrided with a shaver. The knee was taken through a full ROM nad again the meniscus was probed and stable. I then removed all instrumentation and closed the portals with nylon. 25 mL of 2% Marcaine with epinephrine was injected into the joint and the surrounding soft tissues. Patient was then placed in sterile dressing extubated brought recovery room stable condition. There were no known complications.
== END 2023-12-03 16:05 | disposition home or self-care (01) ==
PROVIDERS: PCP Student in an Organized Health Care Education/Training Program; Visit Provider Orthopaedic Surgery
PROC: (CPT 29870; principal; 2023-12-03 12:10)
DX: S83.281A Other tear of lateral meniscus, current injury, right knee, initial encounter (principal); M23.361 Other meniscus derangements, other lateral meniscus, right knee; M17.11 Unilateral primary osteoarthritis, right knee; M71.21 Synovial cyst of popliteal space [Baker], right knee; M94.261 Chondromalacia, right knee; X58.XXXA Exposure to other specified factors, initial encounter; Y93.9 Activity, unspecified; Y92.9 Unspecified place or not applicable; Y99.9 Unspecified external cause status; Z98.890 Other specified postprocedural states; Z79.899 Other long term (current) drug therapy; Z79.1 Long term (current) use of non-steroidal anti-inflammatories (NSAID)
CPT/HCPCS: 29881; J0131; J0171; J0690; J1100; J1170; J2250; J2405; J2704; J2795

== ENCOUNTER → 2023-12-03 10:27 | Outpatient (BNV) | payer MEDICARE, SELFPAY | PROVIDERS: PCP Student in an Organized Health Care Education/Training Program; Visit Provider Orthopaedic Surgery | DX: S83.281A Other tear of lateral meniscus, current injury, right knee, initial encounter (principal) | CPT/HCPCS: 29881 ==

== ENCOUNTER 2023-12-11 10:44 | Outpatient (AMB) | payer MEDICARE, SELFPAY ==
--- NOTE | 2023-12-11 10:52 | A.OFFVIS_ITS ---
Intake Intake Visit Reasons: PO RT Knee 12/03/23 NE Intake Note: Hawa a 72 year old female presents today for a post operative right knee on 12/03/23 NE. Patient reports her knee has been doing well however she i concerned of swelling, bruising, and pain in her calf and ankle area. Allergies ENVIRONMENTAL Allergy (Intermediate, Uncoded 12/11/23 10:58) HAYFEVER HPI PO RT Knee 12/03/23 NE HPI Details 72-year-old female who returns to the [facility] today for post-op right knee , 12/03/[address] Hernandez. She states she doing well overall however she has swelling, bruising and pain in her calf and ankle area. She has no other concerns today. [facility] Surgical History History of shoulder surgery Social History Alcohol intake: never Patient Tobacco Use Status: Never used Tobacco Current occupational status: retired Current occupation: right handed Review of Systems Const All systems reviewed & are unremarkable except as noted in HPI and below Physical Exam Extrem Other: Right knee: Incision clean, dry and intact. No erythema of joint effusion. She has residual swelling in the muscle belly of the calf with tenderness along the medial aspect of the calf. There is no significant tenderness with plantar and dorsiflexion through the leg. She has full ROM of the knee. NVI. Assessment & Plan Assessment & Plan (1) S/P right knee arthroscopy: Code(s): Z98.890 - Other specified postprocedural states (2) Lateral meniscus tear: Code(s): S83.289A - Other tear of lateral meniscus, current injury, unspecified knee, initial encounter Plan Sutures removed today, steri strips applied. I reassured her that there does not seem to be any type of infectious or thrombotic event that has occurred given the reperfusion and function in her lower extremity. She has physical therapy working with her and she will continue with stretching exercises, icing and elevation and update us if her symptoms are worsening, otherwise she will see us back in 4 weeks for a routine postop appointment with Dr. Hernandez, sooner if needed. Orders: Orders US venous duplex LE RT 12/11/23 R60.9 - Edema, unspecified, Z98.890 - Other specified postprocedural states Patient Instructions: Scribed for Christiane Delcid PA-C, by Chato Hutchison medical billing instructor, on 12/11/2023 at 10:45 AM JERO. Christiane Swanson PA-C, have personally reviewed and agree with the information entered by the scribe. Coding Level of Care Code Global (50795) Diagnoses S/P right knee arthroscopy Z98.890 Lateral meniscus tear S83.289A
== END 2023-12-11 11:51 | disposition home or self-care (01) ==
PROVIDERS: PCP Student in an Organized Health Care Education/Training Program; Visit Provider Physician Assistant
DX: Z98.890 Other specified postprocedural states (principal); S83.289A Other tear of lateral meniscus, current injury, unspecified knee, initial encounter
CPT/HCPCS: 99024

== ENCOUNTER → 2023-12-11 10:44 | Outpatient (BNVA) | payer MEDICARE, SELFPAY | PROVIDERS: PCP Student in an Organized Health Care Education/Training Program; Visit Provider Physician Assistant | DX: S83.289D Other tear of lateral meniscus, current injury, unspecified knee, subsequent encounter (principal); Z98.890 Other specified postprocedural states | CPT/HCPCS: 93971; 99212 ==

== ENCOUNTER 2023-12-11 17:12 | Outpatient (REF) | payer MEDICARE, SELFPAY ==
--- NOTE | ~2023-12-11 | US_ITS ---
EXAMINATION: US VENOUS ULTRASOUND WITH DOPPLER LOWER EXTREMITY, RIGHT CLINICAL INFORMATION: Pain COMPARISON: None available. TECHNIQUE: Ultrasound of the deep veins is performed from the hip to the calf with compression sonography and color and pulse Doppler assessment. Spectral analysis with color-flow imaging is performed. FINDINGS: There is normal venous compression and respiratory variation and augmented flow. The visualized common femoral vein, superficial femoral vein, profunda femoral vein, popliteal vein, and the trifurcation region shows no evidence of deep venous thrombosis. There is no significant popliteal fossa cyst. If the patient's symptoms persist, followup ultrasound in 5 days 7 days might be of value to exclude proximal propagation from a non-visualized calf vein. US/US venous duplex LE RT IMPRESSION: No DVT demonstrated in the right lower extremity.
== END 2023-12-11 17:13 | disposition home or self-care (01) ==
LOC: HO.US 17:12
PROVIDERS: Visit Provider Physician Assistant
DX: Z13.89 Encounter for screening for other disorder (principal)
CPT/HCPCS: 93971

== ENCOUNTER 2024-01-03 11:36 | Outpatient (AMB) | payer MEDICARE, SELFPAY ==
--- NOTE | 2024-01-03 11:49 | MHC.OFFVIS ---
Intake Intake Visit Reasons: PO RT Knee 12/03/23 NE-follow up Intake Note: Hawa is a 73 year old female who presnets today for a post operative appointment s/p Right Knee 12/03/23. She reports that she is doing well with some mild pain in the knee but her primary concern is stiffness of the muscles along the posterior aspect of the leg. She continues to workwith PT. Allergies ENVIRONMENTAL Allergy (Intermediate, Uncoded 12/11/23 10:58) HAYFEVER HPI PO RT Knee 12/03/23 NE-follow up HPI Details Hawa is a 73 year old female who presnets today for a post operative appointment s/p Right Knee 12/03/23. She reports that she is doing well with some mild pain in the knee but her primary concern is stiffness of the muscles along the posterior aspect of the leg. She continues to workwith PT. PFSH Surgical History History of shoulder surgery Social History Alcohol intake: never Patient Tobacco Use Status: Never used Tobacco Current occupational status: retired Current occupation: right handed Physical Exam Extrem Other: ttp medial and lateral compartment, mild soreness right gastroc no swelling Assessment & Plan Assessment & Plan (1) S/P right knee arthroscopy: Code(s): Z98.890 - Other specified postprocedural states Plan: Reviewed right knee intra operative photos. She has moderate lateral tibial plateau degenerative OA. Continue PT. f/u as scheduled. (2) Arthritis of right knee: Code(s): M17.11 - Unilateral primary osteoarthritis, right knee Plan Coding Level of Care Code Global (16050) Diagnoses S/P right knee arthroscopy Z98.890 Arthritis of right knee M17.11
== END 2024-01-03 12:54 | disposition home or self-care (01) ==
PROVIDERS: PCP Student in an Organized Health Care Education/Training Program; Visit Provider Orthopaedic Surgery
DX: Z98.890 Other specified postprocedural states (principal); M17.11 Unilateral primary osteoarthritis, right knee
CPT/HCPCS: 99024

== ENCOUNTER → 2024-01-03 11:36 | Outpatient (BNVA) | payer MEDICARE, SELFPAY | PROVIDERS: PCP Student in an Organized Health Care Education/Training Program; Visit Provider Orthopaedic Surgery | DX: M17.11 Unilateral primary osteoarthritis, right knee (principal); Z98.890 Other specified postprocedural states | CPT/HCPCS: 99212 ==

== ENCOUNTER 2024-02-24 10:29 | Outpatient (AMB) | payer MEDICARE, SELFPAY ==
--- NOTE | 2024-02-24 10:30 | MHC.OFFVIS ---
Vital Signs 02/24/24 10:31 Height 5 ft 1 in Weight 100 lb BMI 18.9 Intake Visit Reasons: OV - Right Knee 12/03/23 Intake Note: Hawa is a 73 year old female who presnets today for a post operative appointment s/p Right Knee 12/03/23. Patient reports that she is doing well, she is still working w PT 3x a week. She does not have full use of the leg yet but has significant improvements. She is unable to to kneel and is just gaining the ability to do deep bends with the knee. She continues to struggle with lateral movements. The knee occasionally regan on her when she is getting up from a prolonged seated of laying position. She complains of pain in the posterior aspect of the knee, without swelling. This pain comes when she is pushing herself in PT. Allergies ENVIRONMENTAL Allergy (Intermediate, Uncoded 12/11/23 10:58) HAYFEVER HPI HPI OV - Right Knee 12/03/23: Details: ~ v3 months post op She feels better and is slowly returning to nl activity [facility] Surgical History History of shoulder surgery Social History Alcohol intake: never Patient Tobacco Use Status: Never used Tobacco Current occupational status: retired Current occupation: right handed Physical Exam Vital Signs: BMI result Body Mass Index 18.9 Results Reviewed Results Reviewed: FUll ROM right knee portals c/d/i No effusion Assessment & Plan Assessment & Plan (1) Arthritis of right knee: Code(s): M17.11 - Unilateral primary osteoarthritis, right knee Category: Medical Plan: May continue to return to nl activity (2) S/P right knee arthroscopy: Code(s): Z98.890 - Other specified postprocedural states Category: Surgical Plan: May resume nl activity Coding Level of Care Code Global (23711) Diagnoses Arthritis of right knee M17.11 S/P right knee arthroscopy Z98.890
[2024-02-24 10:31] VITALS: BMI 18.9
== END 2024-02-24 10:56 | disposition home or self-care (01) ==
PROVIDERS: PCP Student in an Organized Health Care Education/Training Program; Visit Provider Orthopaedic Surgery
DX: M17.11 Unilateral primary osteoarthritis, right knee (principal); Z98.890 Other specified postprocedural states
CPT/HCPCS: 99024

== ENCOUNTER → 2024-02-24 10:29 | Outpatient (BNVA) | payer MEDICARE, SELFPAY | PROVIDERS: PCP Student in an Organized Health Care Education/Training Program; Visit Provider Orthopaedic Surgery | DX: M17.11 Unilateral primary osteoarthritis, right knee (principal); Z98.890 Other specified postprocedural states | CPT/HCPCS: 99212 ==